=== PATIENT | male | born 1945 | race Caucasian/White ===

== ENCOUNTER 2019-05-11 12:38 | Day surgery (SDC) | payer OTHER ==
[2019-05-11 13:24] VITALS: BMI 34.1
[2019-05-11] MEDS ORDERED: METOPROLOL TARTRATE 5 MG/5 ML VIAL ONE (13:32)
[2019-05-11 14:35] VITALS: TEMP 97.9
[2019-05-11 16:39] VITALS: BP 151/75; PULSE 60
--- NOTE | 2019-05-13 16:46 | PATH ---
Surgical Pathology Report Patient Name: SAMUEL THOMPSON [facility]. Rec. #: [id number] /Age/Gender: 1945 (Age: 73) / M Account: [id number] Location: [facility]-ENDOSCOPY Taken: 05/11/2019 Received: 05/12/2019 Reported: 05/13/2019 Physicians: Brian Mcintosh M.D. Specimen(s) Received GASTRIC POLYP Clinical History Guaiac positive stool, anemia, gastric polyp Postoperative diagnosis: Gastric polyp Final Diagnosis GASTRIC POLYP, EXCISION: GASTRIC MUCOSA WITH HYPERPLASTIC POLYP. IMMUNOSTAIN FOR H. PYLORI IS NEGATIVE. Electronically Signed Sherita Mann M.D. Gross Description Received in formalin labeled "gastric polyp," is a 1.5 x 1.3 x 1.2 cm brown, polypoid portion of soft tissue. The base is inked green and the specimen is serially sectioned. The specimen is entirely submitted in one cassette. /05/12/2019 saudi/05/12/2019
== END 2019-05-11 15:30 | disposition home or self-care (01) ==
LOC: JASU-ENDO 12:38
PROVIDERS: ATTEND Internal Medicine Gastroenterology
PROC: 0DB68ZX Excision of Stomach, Via Natural or Artificial Opening Endoscopic, Diagnostic (ICD-10-PCS; 2019-05-11)
PROC: 0DJ08ZZ Inspection of Upper Intestinal Tract, Via Natural or Artificial Opening Endoscopic (ICD-10-PCS; principal; 2019-05-11 13:00)
DX: D64.9 Anemia, unspecified (principal); K31.7 Polyp of stomach and duodenum; I10 Essential (primary) hypertension; I25.10 Atherosclerotic heart disease of native coronary artery without angina pectoris; E11.9 Type 2 diabetes mellitus without complications; N40.0 Benign prostatic hyperplasia without lower urinary tract symptoms; J45.909 Unspecified asthma, uncomplicated; G47.30 Sleep apnea, unspecified; Z95.5 Presence of coronary angioplasty implant and graft; Z79.01 Long term (current) use of anticoagulants
CPT/HCPCS: 88305-TC; 88342-TC

== ENCOUNTER 2024-10-09 07:13 | Inpatient (IN) | payer OTHER ==
[2024-10-09 08:26] LABS: ABSOLUTE IMMATURE GRANULOCYTES 0.05 x10^3/uL (0.0-0.031); BASOPHILS # 0.02 x10^3/uL (0.01-0.08); EOSINOPHIL % 1.8 % (0.8-7.0); EOSINOPHILS # 0.08 x10^3/uL (0.04-0.54); HEMATOCRIT 43.9 % (40.1-51.0); HEMOGLOBIN 13.5 g/dL (13.7-17.5); MCHC 30.8 g/dl (32.3-36.5); MEAN CELL VOLUME 77.3 fl (79.0-92.2); MEAN PLT VOLUME 10.9 fl (9.4-12.4); MONOCYTE # 0.34 x10^3/uL (0.30-0.82); MONOCYTE % 7.7 % (5.3-12.2); PLATELET COUNT # 257 x10^3/uL (163-337); RDW 17.7 % (12.2-16.6)
[2024-10-09 08:40] LABS: INR 1.07 (0.83-1.09); PROTHROMBIN TIME (PATIENT) 11.7 SEC (9.7-13.0)
[2024-10-09 08:42] LABS: ACTIVATED PTT 27.1 SECONDS (25.2-36.5)
[2024-10-09 08:49] LABS: CHLORIDE 96 mmol/L (98-107); POTASSIUM 3.7 mmol/L (3.5-5.1); SODIUM 134 mmol/L (136-145)
[2024-10-09 08:51] LABS: CALCIUM 8.8 mg/dL (8.5-10.1)
[2024-10-09 08:52] LABS: ALBUMIN 3.4 g/dl (3.4-5.0); ANION GAP 8 mmol/L (4-13); BLOOD UREA NITROGEN 19.9 mg/dL (7-18); CO2 31 mmol/L (21-32); GLUCOSE,RANDOM 138 mg/dL (74-106)
[2024-10-09 08:55] LABS: SGOT/AST 17 U/L (15-37); SGPT/ALT 12 U/L (13-61)
[2024-10-09] MEDS ORDERED: ACETAMINOPHEN INJECTION 100 ML ONE (08:55)
[2024-10-09 08:56] LABS: BILIRUBIN,TOTAL 0.9 mg/dL (0.2-1)
[2024-10-09 08:57] LABS: MAGNESIUM 2.3 mg/dL (1.8-2.4)
[2024-10-09 08:58] LABS: ALK PHOS 80 U/L (45-117)
[2024-10-09 09:08] LABS: N-TERMINAL BNP 163.2 pg/ml (5-450)
[2024-10-09 09:15] LABS: URINE APPEARANCE CLEAR; URINE BILIRUBIN NEGATIVE (NEGATIVE); URINE COLOR YELLOW; URINE GLUCOSE (UA) 3+ (NEGATIVE); URINE KETONE NEGATIVE (NEGATIVE); URINE LEUK ESTERASE NEGATIVE (NEGATIVE); URINE NITRITE NEGATIVE (NEGATIVE); URINE PROTEIN TRACE (NEGATIVE)
[2024-10-09] MEDS: ACETAMINOPHEN 1000 MG/100 ML BAG IVPB ONE (09:20)
[2024-10-09] MEDS: SODIUM CHLORIDE 0.9% 500 ML INFUS.BAG IV ONE ×2 (09:31→10:11)
[2024-10-09] MEDS ORDERED: FUROSEMIDE 40 MG/4 ML INJECTABLE VIAL ONE (09:46)
[2024-10-09] MEDS ORDERED: ALPRAZolam 1 MG TABLET PO PRN (10:04)
[2024-10-09] MEDS: INSULIN ASPART SLIDING SCALE (NOVOLOG) 1 VIAL SQ SCH (13:09)
[2024-10-09] MEDS: FUROSEMIDE 40 MG/4 ML INJECTABLE VIAL IVPUSH ONE (13:10)
[2024-10-09] MEDS: PIPERACILLIN/TAZOB 2.25 GM 2.25 GM/50 ML BAG IVPB SCH (17:21)
[2024-10-09] MEDS: HEPARIN NA (PORCINE) 5,000 UNITS/ML 1ML VIAL SQ SCH (22:02)
[2024-10-10] MEDS: guaiFENesin 200 MG/10 ML 10 ML UNIT-DOSE CUPS PO PRN (00:28)
[2024-10-10] MEDS: TAMSULOSIN HCL 0.4 MG CAP PO SCH (07:50)
[2024-10-10] MEDS ORDERED: BENZONATATE 200 MG CAPSULE PO PRN (08:58)
[2024-10-10] MEDS: PANTOPRAZOLE 40 MG TABLET PO SCH (09:11)
[2024-10-10 14:35] VITALS: BMI 27.3
[2024-10-10] MEDS: PIPERACILLIN/TAZOB 2.25 GM 2.25 GM/50 ML BAG IVPB SCH (15:10)
[2024-10-10 15:20] LABS: PH,URINE 5.5 (5.0-8.0); URINE APPEARANCE CLEAR; URINE BILIRUBIN NEGATIVE (NEGATIVE); URINE COLOR YELLOW; URINE GLUCOSE (UA) 3+ (NEGATIVE); URINE KETONE NEGATIVE (NEGATIVE); URINE LEUK ESTERASE NEGATIVE (NEGATIVE); URINE NITRITE NEGATIVE (NEGATIVE); URINE PROTEIN NEGATIVE (NEGATIVE)
[2024-10-10] MEDS ORDERED: ALPRAZolam 1 MG TABLET PO PRN (15:27)
[2024-10-10] MEDS: ALBUTEROL SO4 0.042% IH SOL 1.25 MG/3 ML VIAL.NEB NEB PRN (21:05)
[2024-10-11 08:45] LABS: ABSOLUTE IMMATURE GRANULOCYTES 0.03 x10^3/uL (0.0-0.031); BASOPHILS # 0.02 x10^3/uL (0.01-0.08); EOSINOPHIL % 4.4 % (0.8-7.0); EOSINOPHILS # 0.23 x10^3/uL (0.04-0.54); HEMATOCRIT 38.3 % (40.1-51.0); HEMOGLOBIN 11.9 g/dL (13.7-17.5); MCHC 31.1 g/dl (32.3-36.5); MEAN CELL VOLUME 77.1 fl (79.0-92.2); MEAN PLT VOLUME 10.7 fl (9.4-12.4); MONOCYTE # 0.49 x10^3/uL (0.30-0.82); MONOCYTE % 9.5 % (5.3-12.2); PLATELET COUNT # 257 x10^3/uL (163-337); RDW 17.4 % (12.2-16.6)
[2024-10-11 08:59] LABS: CHLORIDE 101 mmol/L (98-107); POTASSIUM 3.3 mmol/L (3.5-5.1); SODIUM 138 mmol/L (136-145)
[2024-10-11 09:08] LABS: ALBUMIN 2.7 g/dl (3.4-5.0); ANION GAP 8 mmol/L (4-13); BLOOD UREA NITROGEN 16.1 mg/dL (7-18); CALCIUM 8.2 mg/dL (8.5-10.1); CO2 29 mmol/L (21-32); GLUCOSE,RANDOM 103 mg/dL (74-106); MAGNESIUM 2.1 mg/dL (1.8-2.4)
[2024-10-11 09:10] LABS: SGOT/AST 10 U/L (15-37); SGPT/ALT < 6 U/L (13-61)
[2024-10-11 09:11] LABS: CREATININE 1.5 mg/dL (0.55-1.3)
[2024-10-11 09:12] LABS: BILIRUBIN,TOTAL 0.6 mg/dL (0.2-1); TOT PROT 5.7 g/dl (6.4-8.2)
[2024-10-11 09:13] LABS: ALK PHOS 56 U/L (45-117)
[2024-10-11] MEDS ORDERED: POTASSIUM CHLORIDE ORAL LIQUID 20 MEQ/15 ML PO ONE (09:30)
[2024-10-11] MEDS: POTASSIUM CHLORIDE ORAL LIQUID 20 MEQ/15 ML PO ONE (12:09)
[2024-10-12] MEDS: LACTOBACILLUS ACIDOPHILUS 1 TABLET PO ONE (07:46)
[2024-10-12 09:36] LABS: POTASSIUM 3.6 mmol/L (3.5-5.1)
[2024-10-12 09:40] LABS: MAGNESIUM 2.1 mg/dL (1.8-2.4)
[2024-10-12] MEDS: POLYETHYLENE GLYCOL (HEALTHYLAX) 3350 17 GM PACKET PO SCH (09:40)
[2024-10-12] MEDS: LACTOBACILLUS ACIDOPHILUS 1 TABLET PO SCH (09:41)
[2024-10-12] MEDS: SENNOSIDES 8.6MG TABLET (FP) PO SCH (09:41)
[2024-10-12 09:45] LABS: CREATININE 1.5 mg/dL (0.55-1.3)
[2024-10-12] MEDS: HYDROCORTISONE 2.5% TOPICAL CREAM 30 GM TUBE TP SCH (10:04)
[2024-10-12 10:23] LABS: CALCIUM 8.3 mg/dL (8.5-10.1)
[2024-10-12 10:24] LABS: BLOOD UREA NITROGEN 16.1 mg/dL (7-18)
[2024-10-12] MEDS: ACETAMINOPHEN 325 MG TABLET (FP) PO PRN (18:08)
[2024-10-12] MEDS: DOXYCYCLINE HYCLATE 100 MG CAPSULE PO SCH (18:09)
[2024-10-13] MEDS: MAG HYDROX/AL HYDROX/SIMETH 30 ML UNIT-DOSE CUP PO PRN (15:55)
[2024-10-13] MEDS: FAMOTIDINE 20 MG/50 ML IVPB 20 MG/50 ML MG IVPB ONE (15:55)
[2024-10-14 09:13] LABS: HEMATOCRIT 38.6 % (40.1-51.0); HEMOGLOBIN 11.9 g/dL (13.7-17.5); MCHC 30.8 g/dl (32.3-36.5); RDW 17.6 % (12.2-16.6)
[2024-10-14 09:39] LABS: CALCIUM 8.6 mg/dL (8.5-10.1)
[2024-10-14 09:40] LABS: ALBUMIN 2.7 g/dl (3.4-5.0); BLOOD UREA NITROGEN 15.2 mg/dL (7-18); MAGNESIUM 1.7 mg/dL (1.8-2.4)
[2024-10-14 09:43] LABS: CREATININE 1.2 mg/dL (0.55-1.3)
[2024-10-14 09:45] LABS: BILIRUBIN,TOTAL 0.7 mg/dL (0.2-1); TOT PROT 5.8 g/dl (6.4-8.2)
[2024-10-14 09:53] VITALS: BP 132/63; PULSE 65; RESP 20; TEMP 98
[2024-10-14 19:06] LABS: MEAN PLT VOLUME 10.4 fl (9.4-12.4); PLATELET COUNT # 260 x10^3/uL (163-337)
== END 2024-10-14 11:55 | disposition home health service (06) | DRG 195 ==
LOC: JER 07:13 → JERBED 09:36 → J8W 11:52
PROVIDERS: ADMIT Family Medicine; ATTEND Family Medicine
DX: J18.9 Pneumonia, unspecified organism (principal); I25.10 Atherosclerotic heart disease of native coronary artery without angina pectoris; E78.5 Hyperlipidemia, unspecified; I44.7 Left bundle-branch block, unspecified; E11.22 Type 2 diabetes mellitus with diabetic chronic kidney disease; I12.9 Hypertensive chronic kidney disease with stage 1 through stage 4 chronic kidney disease, or unspecified chronic kidney disease; N18.9 Chronic kidney disease, unspecified
CPT/HCPCS: 0241U-QW; 36415; 70450-TC; 71045-TC-FY; 71046-TC-FY; 71250-TC; 76775-TC; 80048; 80053; 81003; 82140; 82272; 82607; 82746; 82962; 83036; 83605; 83735; 83880; 84439; 84443; 84484; 85025; 85027; 85610; 85730; 87040; 87070; 87086; 87186; 87205; 87899; 93005; 93010; 93306-TC; 94640; 97116-GP; 97161-GP; 99285-25; J0131; J1644